=== PATIENT | male | born 1985 | race Caucasian/White ===

== ENCOUNTER 2016-09-27 17:07 | Emergency (ER) | payer OTHER ==
[~2016-09-27] VITALS: Ht 188 cm; Wt 130.6 kg
[2016-09-27] MEDS ORDERED: Tetanus/Diptheria/Pertussis Vaccine 0.5ml Syr IM ONE (17:30)
[2016-09-27 17:47] VITALS: BP 123/76
[2016-09-27] MEDS ORDERED: IBUPROFEN600 MG ORAL (18:11)
[2016-09-27 18:31] VITALS: BP 125/76
--- NOTE | 2016-09-27 19:55 | Emergency Room Report ---
History of Present Illness General Chief Complaint: Laceration Source: Patient Present Illness HPI The patient is a 31-year-old male presenting for laceration to the left foot. He states that he was at work and the knife fell off a table striking his left foot. He noticed immediate pain and bleeding. Pain is now 7/10 sharp sensation and does not radiate from the left foot. Worse with touch. Last tetanus shot is unknown. He denies any other symptoms Allergies: Coded Allergies: No Known Allergies (Unverified , 09/27/16) Patient History Past Medical History: see triage record Pertinent Family History: none Reviewed Nursing Documentation: PMH: Agreed, PSxH: Agreed Nursing Documentation-PMH Past Medical History: No Stated History Review of Systems All Other Systems: negative except mentioned in HPI Physical Exam Vital Signs Date Time Temp Pulse Resp B/P Pulse Ox O2 Delivery O2 Flow Rate FiO2 09/27/16 17:14 99.0 60 15 123/76 97 Room Air Sp02 EP Interpretation: reviewed, normal General Appearance: no apparent distress, alert, GCS 15, non-toxic Head: normocephalic, atraumatic Eyes: bilateral eye PERRL, bilateral eye normal inspection Musculoskeletal: back normal, gait/station normal, normal range of motion, tender - TTP over the L 1st MCPJ Neurologic: alert, oriented x3, responsive, motor strength/tone normal, sensory intact, normal gait, speech normal Psychiatric: judgement/insight normal, memory normal, mood/affect normal, no suicidal/homicidal ideation Skin: normal turgor, laceration - 1cm linear laceration to the L 1st MCPJ Lymphatic: no adenopathy Procedures Laceration/Wound Repair Laceration/Wound Repair : Consent: Verbal Wound Location: lower extremity Wound's Depth, Shape: superficial, linear Wound Length (cm): 1 Wound Explored: clean Irrigated w/ Saline (ccs): 100 Betadine Prep?: Yes Volume Anesthetic (ccs): 0 Wound Debrided: minimal Wound Repaired With: Dermabond Sterile Dressing Applied?: No Splint Applied?: No Sling Applied?: No Patient Tolerated: Well Complications: None Medical Decision Making PA Attestation Dr. Martell is my supervising physician. Patient management was discussed with my supervising physician Diagnostic Impression: Primary Impression: Foot laceration Qualified Codes: S91.312A - Laceration without foreign body, left foot, initial encounter ER Course The patient is a 31-year-old male presenting for laceration to the left foot Ddx considered include but not limited to fracture, tendon/ligament injury, avulsion, nerve damage PE: 1cm linear laceration over the L 1st MCPJ. Full AROM. SILT. No bleeding The wound was cleaned with normal saline and Betadine. Dermabond was used to approximate the wound using multiple layers. Was well approximated. Patient tolerated well. ER precautions given Last Vital Signs Date Time Temp Pulse Resp B/P Pulse Ox O2 Delivery O2 Flow Rate FiO2 09/27/16 18:31 99.0 78 15 125/76 97 Room Air Status: improved Disposition: HOME, SELF-CARE Condition: Stable Scripts Ibuprofen* (MOTRIN*) 600 Mg Tablet 600 MG ORAL Q8H Y for For Pain, #30 TAB 0 Refills Prov: KELLY MAN 09/27/16 Patient Instructions: Nonsutured Laceration Care Additional Instructions: I discussed my findings with the patient. All questions and concerns have been answered. Treatment and medication compliance have been addressed. I advised the patient that they need to follow up with PMD in 3-5 days. Return to ED if symptoms worsen, new symptoms arise, or if needed for any reason. Patient verbalized understanding of discharge instructions. The patient was informed to keep the wound clean and dry. Follow up with workers compensation KELLY MAN Sep 27, 2016 19:55
== END 2016-09-27 18:33 | disposition home or self-care (01) ==
LOC: EMR 17:30
DX: S91.312A Laceration without foreign body, left foot, initial encounter (principal); Z23 Encounter for immunization; W26.0XXA Contact with knife, initial encounter; Y93.9 Activity, unspecified; Y99.0 Civilian activity done for income or pay
CPT/HCPCS: 90471; 90715; 96372